=== PATIENT | male | born 1995 | race Caucasian/White ===

== ENCOUNTER 2020-03-16 12:04 | Emergency (ER) | payer OTHER ==
[2020-03-16] MEDS ORDERED: ONDANSETRON HCL INJ/PF 4 MG/2 ML SDV IV ONE (13:18)
[2020-03-16] MEDS ORDERED: NORMAL SALINE 1000 ML 1,000 ML IV ONE (13:18)
--- NOTE | 2020-03-16 13:21 | ER Document Report ---
ED Medical Screen (RME) - General Chief Complaint: Diarrhea Stated Complaint: DIARRHEA Time Seen by Provider: 03/16/20 13:16 - HPI Notes: 03/16/20 13:19 24-year-old male presents to the emergency room with complaints of bilateral lower abdominal pain for the last 2 weeks with diarrhea. Patient reports he is having black tarry stool, he is stooling more than 10 times a day. Has tried [id number] Prilosec and Pepto-Bismol without any relief. Denies any sick contacts. Denies any history of travel outside of the country, new medications or new foods. Does report some nausea with eating, did vomit once 5 days ago. Denies ever having a colonoscopy or endoscopy. reports some persistent nausea. Denies any chest pain, shortness of breath. [facility] I have greeted and performed a rapid initial assessment of this patient. A comprehensive ED assessment and evaluation of the patient, analysis of test results and completion of the medical decision making process will be conducted by additional ED providers. PHYSICAL EXAMINATION: GENERAL: Well-appearing, well-nourished and in no acute distress. NECK: Normal range of motion CV: s1, s2 regular LUNGS: No respiratory distress abd: RLQ, LLQ, periumbilical abd pain, no cva tenderness appreciated - Related Data Allergies/Adverse Reactions: No Known Allergies Allergy (Verified 03/16/20 13:11) Past Medical History - Social History Chew tobacco use (# tins/day): No Frequency of alcohol use: Occasional Drug Abuse: None Physical Exam - Vital signs Vitals: Temp Pulse Resp BP Pulse Ox 97.5 F 62 18 122/72 100 03/16/20 12:10 03/16/20 12:10 03/16/20 12:10 03/16/20 12:10 03/16/20 12:10 Course - Vital Signs Vital signs: Temp Pulse Resp BP Pulse Ox 97.5 F 62 18 122/72 100 03/16/20 12:10 03/16/20 12:10 03/16/20 12:10 03/16/20 12:10 03/16/20 12:10
[2020-03-16 14:27] LABS: AMORPHOUS SEDIMENT,URINE 1+ /HPF; APPEARANCE,URINE CLOUDY; BILIRUBIN,URINE NEGATIVE (NEGATIVE); COLOR,URINE YELLOW; GLUCOSE, URINE NEGATIVE (NEGATIVE); KETONES,URINE NEGATIVE (NEGATIVE); LEUKOCYTE ESTERASE,URINE NEGATIVE (NEGATIVE); NITRITE,URINE NEGATIVE (NEGATIVE); PROTEIN,URINE NEGATIVE (NEGATIVE); URINE SPECIFIC GRAVITY 1.018; UROBILINOGEN,URINE NEGATIVE mg/dL (<2.0)
[2020-03-16 14:33] LABS: ABSOLUTE EOSINOPHILS # (AUTO) 0.1 10^3/uL (0.0-0.6); ABSOLUTE LYMPHOCYTES (AUTO) 0.9 10^3/uL (0.5-4.7); ABSOLUTE MONOCYTES (AUTO) 0.6 10^3/uL (0.1-1.4); ABSOLUTE NEUT (AUTO) 2.3 10^3/uL (1.7-8.2); BASOPHILS % (AUTO) 0.7 % (0-2); EOSINOPHILS % (AUTO) 1.7 % (0-6); HEMATOCRIT 44.1 % (37.9-51.0); HEMOGLOBIN 15.8 g/dL (13.5-17.0); LYMPHOCYTES % (AUTO) 23.3 % (13-45); MEAN CORPUSCULAR HEMOGLOBIN 29.7 pg (27.0-33.4); MEAN CORPUSCULAR HGB CONC 35.9 g/dL (32.0-36.0); MEAN CORPUSCULAR VOLUME 83 fl (80-97); MONOCYTES % (AUTO) 14.5 % (3-13); PLATELET COUNT 209 10^3/uL (150-450); RED BLOOD COUNT 5.33 10^6/uL (4.35-5.55); RED CELL DISTRIBUTION WIDTH 13.3 % (11.5-14.0); SEGMENTED NEUTROPHILS % (AUTO) 59.8 % (42-78); TOTAL CELLS COUNTED % (AUTO) 100 %; WHITE BLOOD COUNT 3.9 10^3/uL (4.0-10.5)
[2020-03-16 14:53] LABS: ALBUMIN 4.9 g/dL (3.5-5.0); ALKALINE PHOSPHATASE 65 U/L (38-126); ANION GAP 9 (5-19); ASPARTATE AMINO TRANSFERASE 26 U/L (17-59); BILIRUBIN,DIRECT 0.2 mg/dL (0.0-0.4); BILIRUBIN,TOTAL 0.9 mg/dL (0.2-1.3); BLOOD UREA NITROGEN 13 mg/dL (7-20); CALCIUM 9.8 mg/dL (8.4-10.2); CARBON DIOXIDE 29 mmol/L (22-30); CHLORIDE 101 mmol/L (98-107); GLUCOSE 85 mg/dL (75-110); POTASSIUM 4.4 mmol/L (3.6-5.0); TOTAL PROTEIN 7.8 g/dL (6.3-8.2)
--- NOTE | 2020-03-16 15:48 | ER Document Report ---
ED General - General Chief Complaint: Diarrhea Stated Complaint: DIARRHEA Time Seen by Provider: 03/16/20 13:16 Mode of Arrival: Ambulatory Information source: Patient Notes: Patient is a healthy 24-year-old male coming in today chief complaint of abdominal pain and diarrhea. Patient reports for the past 2 weeks every time he eats he gets nauseated. Has decreased appetite subsequent to this. Also reports very loose stools. Describes him as being green in color. Initially they were black but patient admits to taking Pepto-Bismol. He is not having any trouble taking fluids and he is not vomiting. TRAVEL OUTSIDE OF THE [place] IN LAST 30 DAYS: No - Related Data Allergies/Adverse Reactions: No Known Allergies Allergy (Verified 03/16/20 13:11) Past Medical History - Social History Smoking Status: Former Smoker Chew tobacco use (# tins/day): No Frequency of alcohol use: Occasional Drug Abuse: None Family History: Other - Mom has IBS Patient has homicidal ideation: No Review of Systems - Review of Systems Notes: Constitutional: No fevers. No chills. EENT: No eye redness. No eye pain. No ear pain. No sore throat. Cardiovascular: No chest pain. No palpitations. Respiratory: No cough. No shortness of breath. No respiratory distress. Gastrointestinal: Positive for abdominal pain, nausea, diarrhea Genitourinary: Atraumatic. No lesions. No pain. No discharge. Musculoskeletal: Atraumatic. No swelling. No deformities. Skin: No rash or lesions. Lymphatic: No swollen lymph nodes. Neurologic: No headache. No syncope. Psychiatric: No suicidal or homicidal ideation. Physical Exam - Vital signs Vitals: Temp Pulse Resp BP Pulse Ox 97.5 F 62 18 122/72 100 03/16/20 12:10 03/16/20 12:10 03/16/20 12:10 03/16/20 12:10 03/16/20 12:10 - Notes Notes: General: Well-developed, well-nourished. In no acute distress. Non-toxic appearing. Cardiac: Well-perfused. Regular rate and rhythm. No murmurs, rubs, or gallops. Pulmonary: No respiratory distress. No cyanosis. Bilateral lung benitez are clear to auscultation. Abdominal: Non-distended. Non-rigid. Bowels sounds are present in all four quadrants. No guarding or rebound. HEENT: Head is atraumatic. Conjunctivae not reddened. No tearing. PERRL. EOMI. Orbits atraumatic. No periorbital swelling or erythema. Oropharynx is without erythema, swelling, or exudates. Neck: Supple. No adenopathy. No meningismus. Dermatologic: Warm with good turgor. No rash. Atraumatic. Chest: Atraumatic. No chest wall tenderness to palpation. Musculoskeletal: Moves all extremities well. No range of motion deficits. no muscular or joint tenderness. No paraspinal muscle tenderness. no midline spinal tenderness or step-off. Genitourinary: Examination deferred Neurologic: No gross neurologic deficits. Psychiatric: Normal mood. Course - Re-evaluation Re-evalutation: 03/16/20 15:47 So far the patient has normal-appearing labs. No electrolytes in need of repletion. CT scan is pending. He is drinking his contrast for this. Stool cultures ordered which I think is a good idea to rule out any type of pathogen. Suspicious for gallbladder disease given the nausea every time he eats and the unformed stools. CT should shed some light if there is any stones, sludge, or cholecystitis. 03/16/20 16:55 Normal-appearing lab work. CT scan shows an incidental finding of a left pelvic kidney. Patient is advised of this anatomical variant. We do not have a definite cause for his nausea and loose stools. Findings are possibly consistent with gallbladder problems. [facility]. We will have him follow-up with primary care for referral to [facility]. We will give him something for nausea as needed. Told him that he will need to do some stool studies with his primary care doctor since he was unable to offer any today. He acknowledges understanding of the plan. - Vital Signs Vital signs: Temp Pulse Resp BP Pulse Ox 97.5 F 62 18 122/72 100 03/16/20 12:10 03/16/20 12:10 03/16/20 12:10 03/16/20 12:10 03/16/20 12:10 - Laboratory Result Diagrams: 03/16/20 14:01 03/16/20 14:01 Laboratory results interpreted by me: 03/16/20 14:01 WBC 3.9 L Robeson % (Auto) 14.5 H Discharge - Discharge Clinical Impression: Nausea, Single pelvic kidney Frequent loose stools Qualifiers: Diarrhea type: unspecified type Qualified Code(s): R19.7 - Diarrhea, u nspecified Condition: Good Disposition: HOME, SELF-CARE Instructions: Nausea or Vomiting, Nonspecific ([facility]), Diarrhea, Nonspecific ([facility]) Additional Instructions: You need to see your primary care doctor soon as possible. Stool studies should also help. This can be accomplished through your primary care doctor. If the symptoms persist you may need to see a gastrointestinal specialist. This is most likely a referral that will have to happen through your primary care physician. Prescriptions: Ondansetron [Zofran Odt 4 mg Tablet] 1 tab PO Q6HP PRN #15 tab.rapdis PRN Reason: For Nausea/Vomiting Referrals: JORDAN RIOS MD [ACTIVE STAFF] - Follow up as needed
--- NOTE | 2020-03-16 16:16 | RADIOLOGY REPORT (SQ) ---
EXAM DESCRIPTION: CT ABD/PELVIS WITH IV ORAL IMAGES COMPLETED DATE/TIME: 03/16/2020 4:05 pm REASON FOR STUDY: lower abd pain x 2 weeks with diarrhea, 10x/day COMPARISON: None. TECHNIQUE: CT scan of the abdomen and pelvis performed using helical scanning technique with dynamic intravenous contrast injection. No oral contrast. Images reviewed with lung, soft tissue, and bone windows. Reconstructed coronal and sagittal MPR images reviewed. Delayed images for evaluation of the urinary system also acquired. All images stored on PACS. All CT scanners at this facility use dose modulation, iterative reconstruction, and/or weight based d osing when appropriate to reduce radiation dose to as low as reasonably achievable (ALARA). [facility]: Dose Right [facility]: CareDose [facility]: Dose Right [facility]: Teradose 4D [facility]: [place] CONTRAST TYPE AND DOSE: contrast/concentration: Isovue 350.00 mmol/ml; Total Contrast Delivered: 75. 0 ml; Total Saline Delivered: 25.0 ml RENAL FUNCTION: BUN 13 creatinine 0.78. RADIATION DOSE: CT Rad equipment meets quality standard of care and radiation dose reduction techniq ues were employed. CTDIvol: 4.8 - 5.4 mGy. DLP: 547 mGy-cm.. LIMITATIONS: None. FINDINGS: LOWER CHEST: No significant findings. No nodules or infiltrates. LIVER: Normal size. No masses. No dilated ducts. SPLEEN: Normal size. No focal lesions. PANCREAS: No masses. No significant calcifications. No adjacent inflammation or peripancreatic fluid collections. Pancreatic duct not dilated. GALLBLADDER: No identified stones by CT criteria. No inflammatory changes to suggest cholecystitis. ADRENAL GLANDS: No significant masses or asymmetry. RIGHT KIDNEY AND URETER: No solid masses. No significant calcifications. No hydronephrosis or hyd roureter. LEFT KIDNEY AND URETER: Pelvic kidney. No solid masses. No significant calcifications. No hydron ephrosis or hydroureter. AORTA AND VESSELS: No aneurysm. No dissection. Renal arteries, SMA, celiac without stenosis. RETROPERITONEUM: No retroperitoneal adenopathy, hemorrhage or masses. BOWEL AND PERITONEAL CAVITY: No masses or inflammatory changes. No free fluid or peritoneal masses. APPENDIX: Normal. PELVIS: No mass. No free fluid. Normal bladder. ABDOMINAL WALL: No masses. No hernias. BONES: No significant or acute findings. OTHER: No other significant finding. IMPRESSION: PELVIC LEFT KIDNEY. OTHERWISE NO SIGNIFICANT OR ACUTE FINDING IN THE ABDOMEN OR PELVIS ON CT SCAN WITH IV CONTRAST. TECHNICAL DOCUMENTATION: JOB ID: [id number] Quality ID # [id number]: Final reports with documentation of one or more dose reduction techniques (e.g., Au tomated exposure control, adjustment of the mA and/or kV according to patient size, use of iterative reconstruction technique) 2010 [employer]- All Rights Reserved Reading location - IP/workstation name: [email or web address]
[2020-03-16 18:02] VITALS: BP 112/59
== END 2020-03-16 18:10 | disposition home or self-care (01) ==
LOC: ER 12:04
DX: R19.7 Diarrhea, unspecified (principal); R11.0 Nausea; R10.9 Unspecified abdominal pain; Q63.2 Ectopic kidney; Z87.891 Personal history of nicotine dependence
CPT/HCPCS: 99285; 96361; 96374; 36415; 83690; 83735; 85025; 80053; 81001; 74177; J2405; J7030